=== PATIENT | female | born 1990 | race Caucasian/White ===

== ENCOUNTER → 2024-02-19 10:10 | Outpatient (CLI) | payer OTHER, SELFPAY ==
[2024-02-19 11:51] LABS: Progesterone, Total 3.82 ng/mL
== END ==
PROVIDERS: PCP Family Medicine; Referring Provider Obstetrics & Gynecology; Visit Provider Obstetrics & Gynecology
DX: N91.0 Primary amenorrhea (principal)
CPT/HCPCS: 36415; 84144

== ENCOUNTER 2024-02-19 10:40 | Emergency (ER) | payer OTHER, SELFPAY ==
[2024-02-19 10:48] VITALS: BP 142/83; PULSE 81; RESP 18; TEMP 36.8; O2SAT 99; BMI 29.2
--- NOTE | 2024-02-19 11:44 | ED_ITS ---
HPI - Wound/Laceration <Vonnie Rosas PA-C - Last Filed: 02/19/24 13:40> General Chief Complaint: Wound/Laceration Stated Complaint: laceration on finger r hand Time Seen by Provider: 02/19/24 11:24 History of Present Illness HPI narrative: 33-year-old female presents to the ED status post a laceration sustained to the right pinky finger. Patient sustained a laceration to the right pinky finger when she accidentally cut herself while doing dishes. Patient bandaged the finger up hoping that it would heal. Patient states that the wound was healing, however she fell yesterday and struck the injury, causing it to reopen. She applied some super glue to the wound, and since then she has been experiencing worsening pain. Denies fever, chills, numbness, tingling, weakness. Patient is able to range the finger fully. Related Data Home Medications Medication Instructions Recorded Confirmed dextroamphetamine-amphetamine ER 1 cap PO QAM 01/29/24 01/29/24 20 mg 24hr capsule,extend release fluoxetine 20 mg capsule 60 mg PO QAM 01/29/24 01/29/24 vitamin with calcium 1 tab PO DAILY 01/29/24 01/29/24 no.72-iron 27 mg-folic acid 1 mg tablet (M- Plus) Previous Rx's Medication Instructions Recorded cephalexin 500 mg capsule 500 mg PO QID 5 days #20 caps 02/19/24 Allergies Allergy/AdvReac Type Severity Reaction Status Date / Time No Known Drug Allergies Allergy Unverified 01/29/24 09:01 Review of Systems <Vonnie Rosas PA-C - Last Filed: 02/19/24 13:40> Constitutional Constitutional: Denies chills, Denies fatigue, Denies fever(s), Denies frequent falls, Denies lethargy and Denies weakness Eyes Eyes: Denies change in vision, Denies eye discharge, Denies irritation and Denies loss of vision ENT Ears, Nose, Mouth, and Throat: Denies change in voice, Denies dizziness, Denies neck pain, Denies sore throat and Denies throat swelling Cardiovascular Cardiovascular: Denies chest pain, Denies irregular heart rhythm, Denies lightheadedness, Denies palpitations, Denies dyspnea, Denies dyspnea on exertion and Denies orthopnea Respiratory Respiratory: Denies cough, Denies dyspnea, Denies dyspnea on exertion and Denies wheezing Gastrointestinal Gastrointestinal: Denies abdominal pain, Denies change in bowel habits, Denies diarrhea, Denies nausea and Denies vomiting Musculoskeletal Musculoskeletal: Denies neck pain and Denies numbness Integumentary/Breasts Skin/Breast: Denies pruritus, Denies erythema, Denies rash and Denies wounds Comments: Right pinky finger laceration Neurologic Neurologic: Denies behavioral changes, Denies confusion, Denies dizziness, Denies frequent falls, Denies loss of vision, Denies numbness and Denies weakness Psychiatric Psychiatric: Denies anxiety, Denies behavioral changes, Denies confusion, Denies depression, Denies homicidal ideation and Denies suicidal ideation Endocrine Endocrine: Denies fatigue, Denies flushing and Denies palpitations Hematologic/Lymphatic Hematologic/Lymphatic: Denies easy bruising Allergic/Immunologic Allergic/Immunologic: Denies urticaria, Denies throat swelling and Denies wheezing Patient History <Vonnie Rosas PA-C - Last Filed: 02/19/24 13:40> Medical History Primary anovulatory infertility Primary amenorrhea Social History Smoking Status: Current some day smoker Smoking Status: Current some day smoker tobacco type: vaping alcohol intake frequency: a few times a week Alcohol type: wine Substance Use Type: marijuana Exam <Vonnie Rosas PA-C - Last Filed: 02/19/24 13:40> Narrative Exam Narrative: Const General:?cooperative, healthy appearing and comfortable [facility] Head:?normal to inspection Ears:?hearing grossly normal bilaterally Nose:?external nose normal Face and sinus:?normal facial exam and sinuses nontender Mouth:?oral mucosae normal Throat:?posterior oropharynx normal Eyes General:?appearance normal, both eyes and all related structures Neck Neck:?normal visual inspection and no lymphadenopathy noted Resp Effort & Inspection:?normal respiratory effort Auscultation:?clear to auscultation bilaterally Cardio Rate:?regular rate Rhythm:?regular rhythm Integumentary There is a 2 cm v-shaped laceration that is not healing with good approximation from secondary healing. No signs of infection. There is full range of motion of the finger. Strength and sensation is intact. Patient is neurovascularly intact. Neuro General:?patient alert, patient awake and patient oriented x3 Initial Vital Signs Initial Vital Signs: Vital Signs Temperature 98.3 F 02/19/24 10:48 Pulse Rate 81 02/19/24 10:48 Respiratory Rate 18 02/19/24 10:48 Blood Pressure 142/83 H 02/19/24 10:48 Pulse Oximetry 99 02/19/24 10:48 Oxygen Delivery Method Room Air 02/19/24 10:48 <Nathaly Cristobal DO - Last Filed: 02/19/24 17:12> Initial Vital Signs Initial Vital Signs: Vital Signs Temperature 98.3 F 02/19/24 10:48 Pulse Rate 81 02/19/24 10:48 Respiratory Rate 18 02/19/24 10:48 Blood Pressure 142/83 H 02/19/24 10:48 Pulse Oximetry 99 02/19/24 10:48 Oxygen Delivery Method Room Air 02/19/24 10:48 Procedures <SILVINO Strange Last Filed: 02/19/24 13:40> Laceration Repair Laceration 1: Site: hand Side (If applicable): right Size (cm): 2 Description: flap Depth: simple, single layer Local Anesthetic: lidocaine 1% Amount of anesthesia used (mL): 3 Pre-repair: wound explored, irrigated extensively, deep structures intact and wound margins revised Skin layer closed with: nylon Skin layer suture size: 5-0 Number of sutures: 7 Technique: simple, interrupted Course <SILVINO Strange Last Filed: 02/19/24 13:40> Orders Ordered: Discontinued Medications Diphtheria/Tetanus/Acell Pertussis (Tet,Diph,Pertuss(Acell),Vac/Pf 0.5 Ml Syringe) 0.5 ml IM .ONCE ONE Stop: 02/19/24 13:20 Last Admin: 02/19/24 13:24 Dose: 0.5 ml Documented By: NAVJOT Ondansetron HCl (Ondansetron 4 Mg Odt) 4 mg SL NOW ONE Stop: 02/19/24 11:59 Last Admin: 02/19/24 12:09 Dose: 4 mg Documented By: NAVJOT Vital Signs Vital signs: Vital Signs - 8 hr 02/19/24 10:48 02/19/24 13:20 Temperature 98.3 F Pulse Rate 81 79 Respiratory Rate 18 16 Blood Pressure 142/83 H 136/80 Pulse Oximetry 99 98 Oxygen Delivery Method Room Air Room Air <Nathaly Cristobal DO - Last Filed: 02/19/24 17:12> Orders Ordered: Discontinued Medications Diphtheria/Tetanus/Acell Pertussis (Tet,Diph,Pertuss(Acell),Vac/Pf 0.5 Ml Syringe) 0.5 ml IM .ONCE ONE Stop: 02/19/24 13:20 Last Admin: 02/19/24 13:24 Dose: 0.5 ml Documented By: NAVJOT Ondansetron HCl (Ondansetron 4 Mg Odt) 4 mg SL NOW ONE Stop: 02/19/24 11:59 Last Admin: 02/19/24 12:09 Dose: 4 mg Documented By: NAVJOT Vital Signs Vital signs: Vital Signs - 8 hr 02/19/24 10:48 02/19/24 13:20 Temperature 98.3 F Pulse Rate 81 79 Respiratory Rate 18 16 Blood Pressure 142/83 H 136/80 Pulse Oximetry 99 98 Oxygen Delivery Method Room Air Room Air MDM - Wound/Laceration <Vonnie Rosas PA-C - Last Filed: 02/19/24 13:40> MDM Narrative Medical decision making narrative: 33-year-old female presents to the ED status post a laceration sustained to the right pinky finger. Patient does have a slow healing flap laceration on the right pinky finger. There are no overt signs of cellulitis. Will numb the finger and washout the wound and re-evaluate. Patient's pinky finger on the right hand was numbed with a digital block. Wound soaked, also per glue removed. Given that the wound has not been approximating well and has not healed well in the last 6 days, no overt signs of infection, patient is right-handed, will repair laceration with sutures despite wound being well past the window of primary closure. This will offer patient a better chance to heal with minimal scarring or infection, and minimize loss of function. Laceration repaired with sutures. Prescribed antibiotics due to increased risk of infection. Tetanus was updated. Wound care, signs of infection discussed with patient. Suture removal in 7-10 days discussed with patient. ED return precautions discussed with patient. Patient verbalized understanding. Medical records reviewed: Yes Discharge Plan Departure Patient Disposition: Home Clinical Impression: Laceration Instructions: DI for Laceration Repair Activity Restrictions/Additional Instructions: You were evaluated in the ED today for a laceration on your finger. The laceration was repaired with 7 sutures. The sutures will need to be removed in 7-10 days. You may go to a walk-in clinic, your PCP's office, or return to the ED for suture removal. Given that this is a delayed closure after several days since the injury, it is prone to infection and you are being prescribed antibiotics as a preventative measure. Please monitor the injury for signs of infection including worsening pain, redness, warmth, swelling, discharge. Return to the ED if you note any signs of infection. Prescriptions: New cephalexin 500 mg capsule 500 mg PO QID 5 Days Qty: 20 0RF No Action dextroamphetamine-amphetamine 20 mg capsule,extended release 24hr 1 cap PO QAM M-Juan Plus 27 mg iron- 1 mg tablet 1 tab PO DAILY fluoxetine 20 mg capsule 60 mg PO QAM Referrals: Xander Wolff DO [Primary Care Provider] - Stand Alone Forms: Patient Portal/API ED Sign-out <Nathaly Cristobal DO - Last Filed: 02/19/24 17:12> Cosign ED Attending Cosbatsheva Attestation: I was available for consultation.
[2024-02-19] MEDS: ONDANSETRON 4 MG ODT SL (12:09)
[2024-02-19 13:20] VITALS: BP 136/80; PULSE 79; RESP 16; O2SAT 98
[2024-02-19] MEDS: TET,DIPH,PERTUSS(ACELL),VAC/PF 0.5 ML SYRINGE IM (13:24)
== END 2024-02-19 13:29 | disposition home or self-care (01) ==
PROVIDERS: Emergency Provider Student in an Organized Health Care Education/Training Program; PCP Family Medicine
DX: S61.216A Laceration without foreign body of right little finger without damage to nail, initial encounter (principal); W26.9XXA Contact with unspecified sharp object(s), initial encounter; Z23 Encounter for immunization
CPT/HCPCS: 12001; 36415; 84144; 90471; 99283; 99284; 90715

== ENCOUNTER → 2024-08-05 10:50 | Outpatient (CLI) | payer OTHER, SELFPAY ==
[2024-08-05 11:50] LABS: Free T4, Direct Thyroxine 1.25 ng/dL (0.78-2.19)
[2024-08-05 12:05] LABS: Thyroid Stimulating Hormone 1.83 uIU/mL (0.47-4.68)
[2024-08-05 13:10] LABS: Hemoglobin A1C% w Est Avg Glu 4.9 % (4.0-6.0)
== END ==
PROVIDERS: PCP Family Medicine; Referring Provider Obstetrics & Gynecology; Visit Provider Obstetrics & Gynecology
DX: E28.2 Polycystic ovarian syndrome (principal); N97.0 Female infertility associated with anovulation; N91.0 Primary amenorrhea
CPT/HCPCS: 36415; 83036; 84439; 84443